=== PATIENT | male | born 1950 | race Caucasian/White ===

== ENCOUNTER 2019-03-16 05:49 | Inpatient (IN) | payer OTHER ==
[~2019-03-16] VITALS: Ht 182.9 cm; Wt 92.6 kg
[2019-03-16] VITALS (26 sets, daily range): BP systolic 100–134; BP diastolic 58–91
[~2019-03-16 05:49] MED LIST: ACETAMINOPHEN325 M1 PO; ADULT LOW DOSE81 MG PO; ADVAIR 250-501 EACH INH; ADVAIR HFA 230M12 GM INH; ADVAIR HFA115 MCG/21 INH; ALBUTEROL NEB INH; ALBUTEROL2.5 MG/0.5 INH; ALPRAZOLAM 0.0.25 M1 PO; AMLODIPINE BESY10 MG PO; ANUSOL-HC25 MG RECTAL; APAP/CODEINE ELI5 M1 OR; ASPIR 8181 MG PO; ASPIRIN EC81 M1 PO; ASPIRIN325 PO; AUGMENTIN 875875 M1 PO; AZITHROMYCIN 2250 MG PO; BENICAR20 MG PO; BLOOD PRESSURE MED; CARDIZEM CD180 MG PO; CEFUROXIME500 MG PO; CELEXA 20 MG TA20 M1 PO; CHANTIX1 MG PO; CLEAR LAX; CODEINE 10 MG-473 ML; COZAAR 25 MG TA25 M1 PO; COZAAR 50 MG TA50 M1 PO; DOXYCYCLINE 10100 MG PO; DUONEB 2.5-0.5 M3 ML INH; GUAIFENESI100 MG/5 M PO; HYDROCODON-ACE1 EAC7 PO; HYDROCODONE-AP1 EAC6 PO; INHALER; LEVAQUIN 500 M500 M2 PO; LEVAQUIN 500 M500 M4 PO; MIRALAX255 GM PO; MOM PO; MUCINEX TA600 MG/TA1 PO; MUCINEX TA600 MG/TA2 PO; MYLANTA 12 OZ355 M1 PO; NOHOMEMEDICATIONS; NORCO 5-325 TA1 EACH PO; OMEPRAZOLE PO; PANTOPRAZOLE SO40 M1 PO; PREDNISONE 10 M10 MG PO; PREDNISONE 20 M20 M1 PO; PREDNISONE 20 M20 MG PO; PREDNISONE50 MG PO; PRILOSEC 20 MG20 MG PO; PRILOSEC PO; PROAIR HFA8.5 GM IH; PROAIR HFA8.5 GM INH; PROAIR HFA8.5 GM PO; PROPAFENONE 15150 MG PO; PROTONIX 20 MG20 M1 PO; PROTONIX40 M1 PO; PROVENTIL HFA6.7 G1 INH; RYTHMOL 150MG150 M1 PO; SINGULAIR 10 MG10 M1 PO; SPIRIVA18 MCG INH; TESSALON PERLE100 MG PO; TRAZODONE HCL50 MG PO; TUSSIONEX PENN473 ML PO; VENTOLIN HFA 1818 GM INH; XANAX 0.5 MG0.5 MG PO; ZPAK; ZPAK PO; [UNRECOGNIZED DRUG - OTHER]; [UNRECOGNIZED DRUG - REMARK]
[2019-03-16] MEDS ORDERED: TRELEGY ELLIPT1 EACH INH (06:00)
[2019-03-16] MEDS ORDERED: PROAIR RESPICL90 MCG INH (06:00)
[2019-03-16] MEDS ORDERED: XANAX 0.25 MG0.25 MG PO (06:00)
[2019-03-16] MEDS ORDERED: SINEMET 25-1001 EAC1 PO (06:01)
[2019-03-16 06:03] LABS: ABSOLUTE BASOPHILS 0.1 thou/uL (0.0-0.2); ABSOLUTE EOSINOPHILS 0.1 thou/uL (0.0-0.7); ABSOLUTE MONOCYTES 0.9 thou/uL (0.0-1.2); ABSOLUTE NEUTROPHILS 6.6 thou/uL (1.6-8.1); BASOPHILS 0.8 %; EOSINOPHILS 0.6 %; HEMATOCRIT 42.3 % (42.0-52.0); HEMOGLOBIN 14.4 gm/dL (14.0-18.0); LYMPHOCYTES 20.5 %; MCH 30.7 pg (26.0-34.0); MCHC 34.1 g/dL (28.0-37.0); MCV 90.2 fL (80.0-100.0); MONOCYTES 9.3 %; MPV 7.4 fl. (7.2-11.1); NUCLEATED RBCS 0 /100WBC; PLATELET COUNT* 322 thou/uL (150-400); POLYS 68.8 %; RBC 4.69 mil/uL (4.50-6.00); RDW-CV 14.4 % (10.5-14.5); WBC 9.6 thou/uL (4.0-11.0)
[2019-03-16 06:13] LABS: ANION GAP 14 mmol/L (7-16); BUN 13 mg/dL (7-18); CALCIUM 9.2 mg/dL (8.5-10.1); CHLORIDE 105 mmol/L (98-107); CO2 23 mmol/L (21-32); CREATININE 1.2 mg/dL (0.6-1.3); GLUCOSE 106 mg/dL (70-99); POTASSIUM 3.8 mmol/L (3.5-5.1); SODIUM 142 mmol/L (136-145)
[2019-03-16 06:15] LABS: INR 1.1; PROTIME 10.8 Seconds (9.20-11.50)
[2019-03-16 06:24] LABS: ALBUMIN 3.5 g/dL (3.4-5.0); ALKALINE PHOSPHATASE 109 U/L (46-116); MAGNESIUM 2.1 mg/dL (1.8-2.4); NT-PRO BRAIN NAT PEPTIDE 116 pg/mL (<300); SGOT 21 U/L (15-37); SGPT 31 U/L (30-65); TOTAL BILIRUBIN 0.5 mg/dL (<0.1-1.0); TOTAL PROTEIN 7.6 g/dL (6.4-8.2); TROPONIN-I LEVEL <0.06 ng/mL (<0.06)
--- NOTE | 2019-03-16 06:57 | NUR ---
THIS NURSE RECEIVED REPORT FROM SHUN REA. THIS NURSE TO ASSUME PT CARE AT THIS TIME.
[2019-03-16 07:16] LABS: BE -5.2 mmol/L (-2 to +3); PCO2 30.6 mmHg (35.0-45.0); PO2 116.7 mmHg (75.0-100.0); pH 7.396 (7.340-7.450)
--- NOTE | 2019-03-16 07:38 | NUR ---
REPORT GIVEN TO SHUN BALDWIN IN ICU. SHUN BALDWIN TO ASSUME PT CARE INPATIENT NURSE.
--- NOTE | 2019-03-16 09:33 | NUR ---
PT ORIENTED TO ROOM AND UNIT. BED LOW AND LOCKED, SIDE RAILS UP X4, CALL LIGHT IN REACH. PT REMIAN ON BIPAP. WILL CONTINUE TO ASSESS.
--- NOTE | 2019-03-16 10:31 | EKG ---
[place] [address] ELECTROCARDIOGRAM REPORT Name: CHERELLE CROWLEY Room: [address] ADM IN M.R.#: [id number] Admission: 03/16/19 Attend Phys: Onesimo Engle MD Discharge: Date of : 52 Report #: [id number] THIS REPORT FOR: //name// [facility] ED Test Date: 2019-03-16 Test Time: 05:52:44 Pat Name: CHERELLE CROWLEY Department: Room: [facility] Gender: M Gambrel[place]: [place] : 1950 Requested By: Crystal Jacobo Order Number: [id number] MD: Manoj Hernandez Measurements Intervals [place] Rate: 94 P: -8 GA: 149 QRS: -26 QRSD: 108 T: 48 QT: 347 QTc: 434 Interpretive Statements Sinus rhythm Borderline left axis deviation Borderline low voltage, extremity leads Baseline wander in lead(s) V3 Compared to ECG 12/05/2016 09:11:21 no change Electronically Signed On 03-16-2019 10:31:45 CDT by Manoj Hernandez [email or web address] <ELECTRONICALLY SIGNED> By: Manoj Hernandez MD, FACC 03/16/19 1031 0552 0552 Manoj Hernandez MD, [facility] /EPI
--- NOTE | 2019-03-16 10:44 | NUR ---
Nutrition: Consult received for poor po intake. Pt has lost wt from 217# to 183# over 2 yrs - mild to moderate loss. H/o Parkinsons, GERD, COPD/steroid-dependent. Albumin 3.5, labs good. Uses bipap so suboptimal po intake. Spoke with RN, I ordered Ensure Ensure MAX for added kcals and protien. At this time, consider pt mild risk. Will follow po intake, wt, labs. Follow up 03/20/19.
--- NOTE | 2019-03-16 15:26 | NUR ---
PT OFF UNIT TO CT
--- NOTE | 2019-03-16 17:10 | NUR ---
SW met with pt to complete initial assessment, introduce self, and SW role. Pt lives at home with . Pt was having difficulty talking without subsequently having excessive coughing. SW/CM to continue to follow to assist with safe dc planning.
--- NOTE | 2019-03-16 17:26 | NUR ---
WAS ABLE TO WEAN PT OFF BIPAP AND IS NOW ON 3L NC. PT TOLERATING CLEAR LIWUID DIET. WILL CONTINUE TO ASSESS.
[2019-03-17] VITALS (23 sets, daily range): BP systolic 82–130; BP diastolic 46–82
[2019-03-17 00:54] LABS: HEMATOCRIT 36.3 % (42.0-52.0); MCH 30.3 pg (26.0-34.0); MCHC 33.6 g/dL (28.0-37.0); MCV 90.2 fL (80.0-100.0); MPV 7.5 fl. (7.2-11.1); RBC 4.02 mil/uL (4.50-6.00); RDW-CV 14.5 % (10.5-14.5); WBC 5.9 thou/uL (4.0-11.0)
[2019-03-17 00:56] LABS: HEMOGLOBIN 12.2 gm/dL (14.0-18.0)
[2019-03-17 01:01] LABS: CALCIUM 8.2 mg/dL (8.5-10.1); CREATININE 0.9 mg/dL (0.6-1.3); MAGNESIUM 2.1 mg/dL (1.8-2.4); POTASSIUM 3.8 mmol/L (3.5-5.1)
--- NOTE | 2019-03-17 06:11 | NUR ---
ASSUMED PATIENT CARE AT 1900. PATIENT ALERT AND ORIENTED TIMES FOUR. PERSISTENT COUGH. ENOUGH TO MAKE CHEST AND BACK HURT. TITRATED TO 2L NC. TRIED TO TITRATE OFF. PATIENT DESAT TO 88-90%. O2 RESUMED AT 2L. MINOR COMPLAINTS OF PAIN, MOSTLY FROM COUGHING. IV PATENT. CYTOGENETICS TECHNOLOGIST COMPLETED DOCUMENTED.
--- NOTE | 2019-03-17 08:08 | CON ---
[address] [address] CONSULTATION Name: CHERELLE CROWLEY Room: [address] ADM IN M.R.#: [id number] Admission: 03/16/19 Attend Phys: Onesimo Engle MD Discharge: Date of : 52 Report #: [id number] THIS REPORT FOR: //name// CC: Onesimo Marrero DATE OF SERVICE: 03/16/2019 NEW PATIENT EVALUATION REASON FOR EVALUATION: Acute respiratory failure, chronic obstructive pulmonary disease exacerbation. REFERRING PHYSICIAN: Onesimo Engle MD HISTORY OF PRESENT ILLNESS: The patient is a 68-year-old gentleman who came in today with severe shortness of breath. When he arrived to the ICU the patient was very short of breath, unable to speak full sentences. He was in severe distress and immediately was placed on BiPAP with improvement. He has been tachypneic in the 30s, has been complaining of cough over the last 2-3 days. However, his cough is dry. He has minimal wheezing, describes chest soreness, but describes retrosternal chest pain as well. He has been on inhalers with Trelegy. He follows at [facility] with Dr. Ch' group. His last admission per the patient has been several years ago. He said he has been on inhalers, quit smoking 15 years ago; however had also asbestos exposure. Since admission, he had lower extremity Dopplers that were negative. Chest x-ray did not show consolidation. Otherwise, history is limited because of the patient being on BiPAP with difficulty with history. History was obtained as above from staff, RT, RN and the patient himself and previous records. No previous admission to the system. PAST MEDICAL HISTORY: Includes COPD, previous history of pneumonia, history of right ankle fracture. ALLERGIES: None. PAST SURGICAL HISTORY: Ankle fracture. SOCIAL HISTORY: Quit smoking 15 years ago, smoked for 45 years, 2 packs per day for a total of 44-wsri-ihfw smoking. 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 FAMILY HISTORY: No family history of lung disease. PHYSICAL EXAMINATION: [place] [address] CONSULTATION Name: CHERELLE CROWLEY Room: [address] IN [facility]#: [id number] Admission: 03/16/19 Attend Phys: Onesimo Engle MD Discharge: Date of : 52 Report #: [id number] GENERAL: The patient is pleasant, not in distress. He is on BiPAP, not in distress. BiPAP 13/02. VITAL SIGNS: He is afebrile, pulse is 80, respiratory rate is 22, blood pressure 109/73, O2 saturation is adequate at 94%. HEAD AND NECK: Normocephalic. Oral mucosa clear. Eyes nonicteric. Neck is supple. No JVD. CHEST: No wheezing. Good air movement in both lungs. Hyperinflation. No significant tenderness. ABDOMEN: Mildly tender. Not reproducible. EXTREMITIES: No edema. PSYCHIATRIC: Flat affect. NEUROLOGIC: No focal deficits grossly. SKIN: No changes. LABORATORY AND OTHER DATABASE: White blood cell count 9.7, hemoglobin is 14.4, platelets 322. Blood gas: pH 7.39, pCO2 of 30, pO2 116. He is sedated on 40% 16/8. Chemistry: Creatinine was 1.1. His lactic acid was normal at 1.1. Troponin x 3 negative. ProBNP 116. D-dimer was elevated at 1.3. ASSESSMENT AND PLAN: 1. Acute respiratory failure. The patient is known to have COPD, likely severe; however, no recent hospitalization. He is on home inhaler with Trelegy, has worsening cough, shortness of breath. At this time recommend treatment with IV systemic steroids as well as antibiotics. We will add Levaquin with the severity of his exacerbation. Agree with bronchodilator treatment every 4 hours. His arterial blood gas has been acceptable. Currently the patient is on azithromycin and Rocephin. We will switch to Levaquin. Continue methylprednisolone every 8 hours today. We will reevaluate tomorrow. 2. Chest pain, atypical. Troponins were negative. Natriuretic peptide is negative; however, elevated D-dimer. Differential diagnosis includes musculoskeletal injury with severe cough. Cardiac is less likely with normal troponin; however, need to evaluate for pulmonary embolism. We will obtain CT angiogram. His lower extremity Dopplers was negative; however, has elevated D-dimer. 3. Previous history of asbestos exposure, it is remote. However with the previous history of smoking, also CT will be obtained to evaluate also for interstitial lung disease as well. 4. Continue BiPAP today. We will reevaluate for weaning tomorrow. We will obtain arterial blood gas tomorrow off BiPAP to evaluate tolerance. At this time, we will continue treatment. This was discussed with nursing and RT as well. <ELECTRONICALLY SIGNED> By: Tito Hernandez MD 03/17/19 0808 1512 0052Apolly Jean Baptiste MD /nt
[2019-03-17 11:58] LABS: URINE BILIRUBIN NEGATIVE (Negative); URINE BLOOD NEGATIVE (Negative); URINE CLARITY CLEAR; URINE COLOR YELLOW; URINE GLUCOSE-RANDOM NEGATIVE (Negative); URINE KETONES NEGATIVE (Negative); URINE LEUKOCYTES-REFLEX NEGATIVE (Negative); URINE NITRITE-REFLEX NEGATIVE (Negative); URINE PROTEIN NEGATIVE (Negative); URINE SPECIFIC GRAVITY <= 1.005 (1.005-1.030); URINE UROBILINOGEN 0.2 E.U./dl (0.2-1.0)
--- NOTE | 2019-03-17 15:40 | NUR ---
ICU rounds: Pt off of bipap and on 2 L oxygen. Pt continues to have coughing episodes. No pt or family concerns presented at this time. SW/KIN to continue to follow.
[2019-03-18] VITALS (8 sets, daily range): BP systolic 93–142; BP diastolic 54–122
--- NOTE | 2019-03-18 02:53 | NUR ---
REPORT GIVEN TO PATTERNMAKER SAMPLE. PT. TRANSFERRING VIA BED. 2L O2. QUESTIONS DENIED. PT. TRANSFERRED TO TELEMETRY AT THIS TIME.
--- NOTE | 2019-03-18 07:12 | NUR ---
RECEIVED REPORT FROM MAGI RN AT 0225. PT ARRIVED TO UNIT AT 0245 VIA BED. PT VOICED NO CONCERNS, ON CUT OFF [place] TRACING SR. HOURLY ROUNDING COMPLETED. NPO FOR ST EVAL. CALL LIGHT WITHIN REACH.
--- NOTE | 2019-03-18 13:59 | NUR ---
VIDEO SWALLOW STUDY COMPLETED. PT SAFE FOR MECHANICAL SOFT-GROUND/THIN DIET. NO ASPIRATION OCCURRED, ONLY TRACE FLASH PENETRATION C THIN. LARGER/CHUNKY BOLUSES LODGED BEHIND THE EPIGLOTTIS AND WAS DIFFICULT FOR THE PT TO CLEAR. IT WAS EVENTUALLY CLEARED WITH THIN AND PUREE SWALLOWS.
--- NOTE | 2019-03-18 14:21 | NUR ---
MET WITH PT. HE WAS TIRED AND VOICE WEAK, ASKED THAT I CALL HIS AND WANTED TO KNOW ABOUT GETTING ASSIST TO APPLY FOR MEDICAID. CALL TO /JAQUELINE. SHE STATED THAT THEY ARE STRUGGLING AT HOME. PT'S SISTER 2 WEEKS AGO AND STATES PT HAS NOT BEEN DOING WELL SINCE THAT TIME. ALSO, THEY ARE RAISING 2 GRANDCHILDREN, 6 AND 16. STATES SHE IS ALWAYS BUSY AT HOME AND ASSISTS PT WITH NEEDS PRN. SHE STATED THAT NORMALLY PT IS ABLE TO DO HIS OWN ADLS, GET IN AND OUT OF BED, TOILET HIMSELF AND USES WALKER. HE HAS A NEBULIZER ALSO. HE DOESN'T SMOKE BUT SHE DOES. DOES COOKING, CLEANING AND DRIVING. PT HAS HAD HH IN PAST BUT NOT BEEN TO SNF. 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 EXPLAINED THAT PT MAY NEED SNF AT [place] FOR REHAB AND WHAT THAT ENTAILED. ALSO DISCUSSED PALLIATIVE CARE. STATED THEY HAVE LITTLE OUTSIDE SUPPORT OR RESOURCES. SHE WANTS TO TALK OPTIONS OVER WITH PT AND DECIDE. UPDATED DR KAT, ORDERS FOR THERAPY RECEIVED. WILL FOLLOW
[2019-03-19] VITALS (8 sets, daily range): BP systolic 104–145; BP diastolic 60–86
--- NOTE | 2019-03-19 04:27 | NUR ---
ASSUMED PT CARE AT APPROX 1930. PT IS AWAKE AND ORIENTED X4. VSS ON 2L OF O2/NC. DRAIN LAYER IN PLACE TRACING SR. ASSESSMENT DONE AND CHARTED. PT DENIES PAIN AND DISCOMFORT. PT STATES HE "FEELS BETTER". PT IS ABLE TO SLEEP MOST OF THE NIGHT. CALL LIGHT WITHIN REACH. HOURLY ROUNDING DONE FPR PT SAFETY. HIGH FALL PRECAUTIONS IN PLACE.
[2019-03-19 05:00] LABS: CALCIUM 8.6 mg/dL (8.5-10.1); CREATININE 0.8 mg/dL (0.6-1.3); MAGNESIUM 2.4 mg/dL (1.8-2.4)
--- NOTE | 2019-03-19 14:36 | NUR ---
CONTINUE TO FOLLOW, VERNA FROM [facility] HERE, COMPLETED MEDICAID LIZET AND WILL SUBMIT. DISCUSSED PALLIATIVE CARE AND HH AT DC WITH PT AND AGAIN WELL SNF. PT DECLINES SNF, WANTS TO GO HOME. OFFERED PALLIATIVE CARE OPTIONS, CHOSE [facility]. THEY CAME OUT AND PT DID SIGN UP WITH THEM. DISCUSSED HH OPTIONS, PT HAS NO PREFERENCE, NEEDS THERAPY AND RT. CALLED AND FAXED REFERRAL TO [facility], THEY CAN ACCEPT AT DC, WILL NEED ORDERS CALLED AND FAXED TO THEM. PT MAY NEED O2 AT DC ALSO. CM TO FOLLOW AND ASSIST WITH DC PLAN [facility] [phone] FAX [phone] [facility] [phone] FAX [phone]
--- NOTE | 2019-03-19 18:42 | NUR ---
PT VSS, NSR ON TELE, PT COUGHS AND DESATS WHILE COUGHING, COUGH LOOSE BUT NONPRODUCTIVE. NC@2L O2, PT UP WITH TWO. HIGH FALL RISK.PT ON [facility] SOFT DIET LIMIT MEAT AND BREAD CAUSES SWALLOWING ISSUES AND CHOKING ISSUE FOR PT. PERSONAL POSSESSIONS AND CALL LIGHT WITHIN REACH. HOURLY ROUNDING PERFORMED.
--- NOTE | 2019-03-19 19:06 | NUR ---
THIS RN AGREES WITH ASSESSMENT AND CHARTING OF KATIE HOFFMANN.
--- NOTE | 2019-03-20 06:03 | NUR ---
Patient arrived to the floor around 2100. He is alert and oriented x 4. His lungs are coarse and wheezy. He is on O2 at 2L n/c and getting breathing treatments. He is coughing and has cough syrup ordered. His vitals are stable. He denies pain. He has slept well.
--- NOTE | 2019-03-20 11:30 | NUR ---
Nutrition: follow up note. Pt coughing when eating - on [facility] Soft diet. Wt back up to 204#. Will follow wt trends. Aspiration precautions. Pt now signed with Palliative Care. Alb 3.5. Defer nutrition if on palliative. RD available via consult.
--- NOTE | 2019-03-20 15:56 | EKG ---
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
--- NOTE | 2019-03-20 18:22 | NUR ---
ASSUMED CARE OF PATIENT AT APPROX 0730. ALERT AND ORIENTED X4. ASSESSMENT COMPLETED AND CHARTED. VSS ON 2 LITERS 02. COMPLAINT OF CHEST PAIN THIS MORNING, NOTIFIED DR KAT, ORDERS GIVEN FOR TROPONIN SERIES, EKG, ASPIRIN AND NITRO. LABS AND EKG UNREMARKABLE. PATIENT STATES PAIN IS UNDER CONTROL AND HE DOES NOT NEED ANY NEW PAIN MEDICATIONS ORDERED. FALL PRECAUTIONS IN PLACE. CALL LIGHT IN REACH. HOURLY ROUNDS COMPLETED. WILL CONTINUE TO MONITOR.
[2019-03-20 20:00] VITALS: BP 134/86
--- NOTE | 2019-03-21 05:27 | NUR ---
ASSUMED PT CARE AT 1930. PT ALERT AND ORIENTED X4, POLITE AND COOPERATIVE WITH CARES. VSS ON 2L 02 PER NC. DENIES PAIN. LOOSE COUGH. PT SLEPT WELL OVERNIGHT. SALINE LOCK TO LEFT HAND FLUSHES EASILY. FALL PRECAUTIONS IN PLACE. HOURLY ROUNDING IN PROGRESS, WILL CONTINUE TO MONITOR.
[2019-03-21 08:00] VITALS: BP 145/86
[2019-03-21 16:33] VITALS: BP 125/80
--- NOTE | 2019-03-21 16:58 | NUR ---
PT REMAINED ALERT AND ORIENTED. PT UP TO CHAIR FOR MEALS. PT REFUSED SHOWER TODAY. OXYGEN IN PLACE. FALL RISK PRECAUTIONS IN PLACE. HOURLY ROUNDING COMPLETED. WILL CONTINUE TO MONITOR.
[2019-03-21 20:00] VITALS: BP 134/83
--- NOTE | 2019-03-22 06:07 | NUR ---
Alert and oriented x 4. His lungs are clear and diminished in the lower lobes. I did not hear wheezes when he was assessed. He is coughing occasionally but not as much as before. He did well with his medications. He is voiding adequately. He denies pain or nausea. He has slept well.
[2019-03-22 08:45] VITALS: BP 119/83
[2019-03-22 15:43] VITALS: BP 118/75
--- NOTE | 2019-03-22 18:02 | NUR ---
PATIENT ALERT AND ORIENTED X 4. VITAL SIGNS STABLE ON 2L O2 NASAL CANULA. AFEBRILE. IV PATENT AND SALINE LOCKED. DENIES PAIN AND NAUSEA AT THIS TIME. VOIDING PER URINAL. UP TO CHAIR FOR LUNCH AND DINNER. FALL PRECAUTIONS IN PLACE AND BED ALARM ON. HOURLY ROUNDS MAINTAINED THROUGHOUT THE SHIFT. CALL LIGHT WITHIN REACH. NURSING WILL CONTINUE TO MONITOR.
[2019-03-22 20:00] VITALS: BP 114/68
--- NOTE | 2019-03-23 06:00 | NUR ---
Alert and oriented x 4. His vitals were stable. Lungs were diminished and had some fine crackles in lower lobes. He was on 2L n/c. RT did a sleep study with pulse ox. He has slept with roomair and the monitor only alarmed one time and it was only for about 5 seconds. This am he is still on roomair and is 93%. He has slept well.
[2019-03-23] MEDS ORDERED: BENZONATATE100 MG PO (08:44)
[2019-03-23] MEDS ORDERED: AUGMENTIN 875-1 EACH PO (08:44)
[2019-03-23] MEDS ORDERED: SINGULAIR 10 MG10 M1 PO (08:44)
[2019-03-23] MEDS ORDERED: PREDNISONE 10 M10 MG PO (08:44)
[2019-03-23] MEDS ORDERED: ROBITUSSIN AC Liquid PO (08:44)
[2019-03-23] MEDS ORDERED: ALBUTEROL SULFAT2 MG PO (08:44)
[2019-03-23 08:50] VITALS: BP 122/76
--- NOTE | 2019-03-23 12:00 | NUR ---
PT.TO DISCHARGE TODAY WITH HOME HEALTH AND PALLIATIVE CARE. FAXED DISCHARGE SUMMARY AND ORDERS TO [facility] AND SPOKE WITH DAISY. FAXED DISHCARGE SUMMARY AND ORDERS TO [facility]. THEY BOTH WILL CALL PT.TO SET UP APPTS. PT.DID NOT QUALIFY FOR HOME O2 OR NOCTURNAL O2.
[2019-03-23 13:47] VITALS: BP 130/80
--- NOTE | 2019-03-23 16:24 | NUR ---
PATIENT DISCHARGED FROM UNIT AT 1615. ALERT AND ORIENTED X 4. VITAL SIGNS STABLE ON ROOM AIR. AFEBRILE. DENIES PAIN AND NAUSEA AT THIS TIME. DISCHARGE INSTRUCTIONS, MEDICATION INFORMATION, AND SCRIPTS GIVEN TO PATIENT. LEFT WITH ALL BELONGINGS. PATIENT LEFT WITH VIA CAR.
[2019-03-23 16:27] VITALS: BP 130/80
== END 2019-03-23 16:15 | disposition home health service (06) | DRG 177 ==
LOC: M.ERS 05:49 → M.TBA-ER 06:22 → M.ICU 06:22 → M.2W 06:22 → M.ICU 08:08 → M.2W 03-18 02:56 → M.ORTHSURG 03-19 20:24
PROVIDERS: Personal Emergency Response Attendant; ADMIT Internal Medicine
PROC: 5A09357 Assistance with Respiratory Ventilation, Less than 24 Consecutive Hours, Continuous Positive Airway Pressure (ICD-10-PCS; principal; 2019-03-16)
DX: J69.0 Pneumonitis due to inhalation of food and vomit (principal); J96.01 Acute respiratory failure with hypoxia; R07.89 Other chest pain; G20 Parkinson's disease; F41.1 Generalized anxiety disorder; R13.10 Dysphagia, unspecified; J43.9 Emphysema, unspecified; J20.9 Acute bronchitis, unspecified; I10 Essential (primary) hypertension; K21.9 Gastro-esophageal reflux disease without esophagitis; Z79.899 Other long term (current) drug therapy; Z79.82 Long term (current) use of aspirin; Z79.51 Long term (current) use of inhaled steroids; Z87.891 Personal history of nicotine dependence; Z87.01 Personal history of pneumonia (recurrent)

== ENCOUNTER 2019-05-29 06:37 | Inpatient (IN) | payer OTHER ==
[~2019-05-29] VITALS: Ht 177.8 cm; Wt 84.5 kg
[~2019-05-29 06:37] MED LIST changes: +ALBUTEROL SULFAT2 MG PO; +AUGMENTIN 875-1 EACH PO; +BENZONATATE100 MG PO; +PROAIR RESPICL90 MCG INH; +ROBITUSSIN AC Liquid PO; +SINEMET 25-1001 EAC1 PO; +TRELEGY ELLIPT1 EACH INH; +XANAX 0.25 MG0.25 MG PO
[2019-05-29 07:08] LABS: BE -0.4 mmol/L (-2 to +3); PCO2 36.3 mmHg (35.0-45.0); PO2 74.9 mmHg (75.0-100.0); pH 7.429 (7.340-7.450)
[2019-05-29 07:20] LABS: ABSOLUTE BASOPHILS 0.1 thou/uL (0.0-0.2); ABSOLUTE EOSINOPHILS 0.1 thou/uL (0.0-0.7); ABSOLUTE LYMPHOCYTES 1.5 thou/uL (0.8-5.3); ABSOLUTE MONOCYTES 0.6 thou/uL (0.0-1.2); ABSOLUTE NEUTROPHILS 6.3 thou/uL (1.6-8.1); BASOPHILS 0.9 %; EOSINOPHILS 1.3 %; HEMATOCRIT 42.1 % (42.0-52.0); HEMOGLOBIN 14.3 gm/dL (14.0-18.0); LYMPHOCYTES 17.6 %; MCH 30.8 pg (26.0-34.0); MCHC 33.9 g/dL (28.0-37.0); MCV 90.9 fL (80.0-100.0); MONOCYTES 7.2 %; MPV 7.5 fl. (7.2-11.1); NUCLEATED RBCS 0 /100WBC; PLATELET COUNT* 273 thou/uL (150-400); RBC 4.63 mil/uL (4.50-6.00); RDW-CV 14.4 % (10.5-14.5); WBC 8.6 thou/uL (4.0-11.0)
[2019-05-29 07:35] LABS: PROTIME 10.7 Seconds (9.20-11.50)
[2019-05-29 07:46] LABS: POTASSIUM 4.3 mmol/L (3.5-5.1)
[2019-05-29 07:57] LABS: ALBUMIN 3.9 g/dL (3.4-5.0); TOTAL BILIRUBIN 0.3 mg/dL (<0.1-1.0); TOTAL PROTEIN 6.9 g/dL (6.4-8.2)
[2019-05-29 08:08] LABS: INFLUENZA A ANTIGEN Negative (Negative); INFLUENZA B ANTIGEN Negative (Negative)
[2019-05-29 09:10] VITALS: BP 146/90
--- NOTE | 2019-05-29 09:50 | NUR ---
PT ARRIVED TO UNIT AT APPROX 0940 VIA CART, REPORT TAKEN FROM SHUN BARRETT. PT A&O X4, UP WITH ASSIST, LS COARSE/DIMINISHED THROUGHOUT, O2 3LPM VIA NC, DYSPNEIC WITH EXERTION, MED SURG STATUS. PT EDUCATED CALLING FOR HELP, ORIENTED TO CALL LIGHT AND ROOM.
--- NOTE | 2019-05-29 10:18 | EKG ---
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 05/29/19 1018 0645 0645 Manoj Hernandez MD, [facility] /EPI
[2019-05-29 16:09] VITALS: BP 117/72
[2019-05-29 20:00] VITALS: BP 123/82
[2019-05-30] VITALS: BP 105/65
[2019-05-30 04:42] LABS: HEMATOCRIT 38.6 % (42.0-52.0); MCH 30.6 pg (26.0-34.0); MCHC 33.6 g/dL (28.0-37.0); MPV 7.5 fl. (7.2-11.1); RBC 4.24 mil/uL (4.50-6.00); RDW-CV 14.4 % (10.5-14.5); WBC 7.2 thou/uL (4.0-11.0)
[2019-05-30 04:46] LABS: CALCIUM 8.6 mg/dL (8.5-10.1); CREATININE 0.8 mg/dL (0.6-1.3)
--- NOTE | 2019-05-30 06:18 | NUR ---
ASSUMED CARE OF PT AFTER REPORT AT 1930. PT A&OX4. VSS. PHYSICAL ASSESSMENT COMPLETED AND CHARTED. PT ON O2 AT 3L NC. PT ON MEDSURG STATUS. PT UPSTANDBY. PT COMPLAINED OF NECK, RIGHT SHOULDER & CHEST PAIN- MEDS GIVEN PER AUG. PT REQUESTED FOR SLEEPING PILL-DR GUTIERREZ MADE AWARE WITH NEW ORDER. CALL LIGHT WITHIN REACH.
--- NOTE | 2019-05-30 07:15 | NUR ---
CHANGE OF SHIFT, BEDSIDE REPORT GIVEN PATIENT SEEN AT BEDSIDE, IN BED ASLEEP ASSUMED PATIENT CARE
[2019-05-30 08:00] VITALS: BP 125/81
[2019-05-30 17:23] VITALS: BP 127/79
[2019-05-30 20:00] VITALS: BP 120/75
[2019-05-31 04:00] VITALS: BP 104/60
--- NOTE | 2019-05-31 05:00 | NUR ---
ASSUMED CARE OF PT AFTER REPORT AT 1930. PT A&OX4. VSS. PHYSICAL ASSESSMENT COMPLETED AND CHARTED. PT ON O2 AT 2L NC. PT ON MEDSURG STATUS. PT COMPLAINED OF NECK & RIGHT SHOULDER-MEDS GIVEN PER MAR. MAINTAINED ON DROPLET PRECAUTION FOR POSSIBLE PERTUSSIS. PT ABLE TO SLEEP WELL ON BED. CALL LIGHT WITHIN REACH.
--- NOTE | 2019-05-31 07:15 | NUR ---
CHANGE OF SHIFT, BEDSIDE REPORT GIVEN PATIENT SEEN AT BEDSIDE, IN BED ASLEEP ASSUMED PATIENT CARE
[2019-05-31 08:00] VITALS: BP 114/61
[2019-05-31 16:00] VITALS: BP 120/69
[2019-05-31 20:00] VITALS: BP 115/73
[2019-06-01 04:00] VITALS: BP 118/81
--- NOTE | 2019-06-01 06:31 | NUR ---
ASSUMED CARE OF PT AFTER REPORT AT 1930. PT A&OX4. VSS. PHYSICAL ASSESSMENT COMPLETED AND CHARTED. PT ON O2 AT 2L NC. PT ON MEDSURG STATUS. PT COMPLAINED OF NECK & RIGHT SHOULDER PAIN-MEDS GIVEN PER MAR. PT ABLE TO SLEEP WELL ON BED. CALL LIGHT WITHIN REACH.
[2019-06-01 08:10] VITALS: BP 125/82
--- NOTE | 2019-06-01 12:58 | NUR ---
Pt is A&O. Resides at home with his and extended family. Pt is current with [facility] palliative care, per MAKAYLA Morris, Pt's house is dirty. Discussed options, PCSW to continue to work with Pt and family to assist with trying to make sure that Pt remains safe in his current living environment. Hx of [facility]. No hx of SNF. Goal is home at dc, resume PC. Following.
[2019-06-01 17:45] VITALS: BP 142/91
--- NOTE | 2019-06-01 19:50 | NUR ---
PATIENT AMBULATING THROUGHOUT SHIFT WITH STAND BY ASSISTANCE, WALKER, AND GAIT BELT IN ROOM AND TO BATHROOM. ALL SAFETY MEASURES MAINTAINED. PATIENT DENIES FURTHER NEEDS AT THIS TIME.
[2019-06-01 21:00] VITALS: BP 122/78
--- NOTE | 2019-06-02 05:41 | NUR ---
PATIENT SLEPT MOST OF THE NIGHT. IV REMAINS SALINE LOCKED. PATIENT HAD NO COMPLAINTS OF PAIN. PATIENT REMAINS ON OXYGEN AT 2L PER NASAL CANNULA. PATIENT REMAINS ON DROPLET PRECAUTIONS FOR POSSIBLE PERTUSSIS. WILL CONTINUE TO MONITOR.
[2019-06-02 05:58] LABS: HEMOGLOBIN 13.7 gm/dL (14.0-18.0); MCH 30.5 pg (26.0-34.0); MCHC 33.5 g/dL (28.0-37.0); MCV 90.9 fL (80.0-100.0); MPV 7.1 fl. (7.2-11.1); RBC 4.5 mil/uL (4.50-6.00); RDW-CV 14.3 % (10.5-14.5); WBC 9.4 thou/uL (4.0-11.0)
[2019-06-02 06:17] LABS: CALCIUM 9.1 mg/dL (8.5-10.1); CREATININE 1.1 mg/dL (0.6-1.3); POTASSIUM 4.2 mmol/L (3.5-5.1)
[2019-06-02 08:30] VITALS: BP 121/76
[2019-06-02 17:10] VITALS: BP 114/73
--- NOTE | 2019-06-02 19:49 | NUR ---
PATIENT AWAKE IN BED. PATIENT UP IN CHAIR FOR LUNCH. ALL SAFETY MEASURES MAINTAINED. PATIENT DENIES FURTHER NEEDS AT THIS TIME.
[2019-06-02 20:30] VITALS: BP 113/75
--- NOTE | 2019-06-03 06:12 | NUR ---
PATIENT SLEPT MOST OF THE NIGHT. IV REMAINS SALINE LOCKED. PATIENT HAD NO COMPLAINTS OF PAIN. PATIENT REMAINS ON DROPLET PRECAUTIONS FOR POSSIBLE PERTUSSIS. WILL CONTINUE TO MONITOR.
[2019-06-03 08:56] VITALS: BP 136/87
[2019-06-03] MEDS ORDERED: PREDNISONE 20 M20 MG PO (11:46)
[2019-06-03 12:57] VITALS: BP 136/87
--- NOTE | 2019-06-03 13:46 | NUR ---
Pt to dc home with family and Palliative care services to resume. [place] faxed med records/dc summary to [facility]--pt current with agency. No need for home oxygen. No other dc needs expressed.
--- NOTE | 2019-06-03 14:40 | NUR ---
Patient ate breakfast and lunch in chair. Patient ambulating with stand by assistance, walker, and gait belt. All safety measures maintained. Clarified xanax order with Dr. Singleton. Instructed to discontinue. Discharge paperwork and prescription given to patient. IV removed. Patient and deny questions/ further needs at this time.
[2019-06-03 14:46] VITALS: BP 136/87
== END 2019-06-03 14:20 | disposition hospice, home (50) | DRG 189 ==
LOC: M.ERS 06:37 → M.TBA-ER 08:12 → M.3W 08:12 → M.2W 08:12 → M.TBA-ER 08:40 → M.2W 09:37 → M.3W 06-01 15:45
PROVIDERS: Emergency Medicine; ADMIT Family Medicine
DX: J96.21 Acute and chronic respiratory failure with hypoxia (principal); J44.1 Chronic obstructive pulmonary disease with (acute) exacerbation; A37.90 Whooping cough, unspecified species without pneumonia; Z51.5 Encounter for palliative care; J98.01 Acute bronchospasm; J06.9 Acute upper respiratory infection, unspecified; I10 Essential (primary) hypertension; K21.9 Gastro-esophageal reflux disease without esophagitis; G20 Parkinson's disease; G44.221 Chronic tension-type headache, intractable; R13.10 Dysphagia, unspecified; D32.0 Benign neoplasm of cerebral meninges; F41.1 Generalized anxiety disorder; Z79.899 Other long term (current) drug therapy; Z98.1 Arthrodesis status; Z87.891 Personal history of nicotine dependence; Z87.01 Personal history of pneumonia (recurrent); Z28.21 Immunization not carried out because of patient refusal

== ENCOUNTER 2019-09-18 13:51 | Emergency (ER) | payer MEDICARE ==
[~2019-09-18] VITALS: Ht 182.9 cm; Wt 74.8 kg
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
[2019-09-18] MEDS ORDERED: ANXIETY (13:59)
[2019-09-18 14:37] LABS: BE 0.6 mmol/L (-2 to +3); PCO2 37.2 mmHg (35.0-45.0); PO2 69.2 mmHg (75.0-100.0); pH 7.437 (7.340-7.450)
[2019-09-18 14:54] LABS: ABSOLUTE BASOPHILS 0.1 thou/uL (0.0-0.2); ABSOLUTE LYMPHOCYTES 0.8 thou/uL (0.8-5.3); ABSOLUTE MONOCYTES 0.5 thou/uL (0.0-1.2); ABSOLUTE NEUTROPHILS 7.6 thou/uL (1.6-8.1); BASOPHILS 0.6 %; EOSINOPHILS 0.3 %; HEMATOCRIT 40.7 % (42.0-52.0); HEMOGLOBIN 13.9 gm/dL (14.0-18.0); LYMPHOCYTES 9.3 %; MCH 31.2 pg (26.0-34.0); MCHC 34.2 g/dL (28.0-37.0); MCV 91.3 fL (80.0-100.0); MONOCYTES 5.6 %; MPV 7.1 fl. (7.2-11.1); NUCLEATED RBCS 0 /100WBC; PLATELET COUNT* 277 thou/uL (150-400); POLYS 84.2 %; RBC 4.45 mil/uL (4.50-6.00); RDW-CV 14.9 % (10.5-14.5)
[2019-09-18 15:41] LABS: CALCIUM 8.7 mg/dL (8.5-10.1); CREATININE 0.8 mg/dL (0.6-1.3); POTASSIUM 3.7 mmol/L (3.5-5.1)
[2019-09-18 15:46] LABS: ALBUMIN 3.7 g/dL (3.4-5.0); TOTAL BILIRUBIN 0.5 mg/dL (<0.1-1.0); TOTAL PROTEIN 6.6 g/dL (6.4-8.2)
[2019-09-18 16:12] LABS: INFLUENZA A ANTIGEN Negative (Negative); INFLUENZA B ANTIGEN Negative (Negative)
[2019-09-18 17:38] VITALS: BP 116/85
[2019-09-18] MEDS ORDERED: IPRAT-ALBUT 0.5-3 ML INH (17:43)
[2019-09-18] MEDS ORDERED: AZITHROMYCIN 2250 MG PO (17:43)
[2019-09-18] MEDS ORDERED: MEDROLDOSEPACK PO (17:59)
[2019-09-18 18:12] VITALS: BP 124/80
--- NOTE | 2019-09-19 14:20 | EKG ---
[place] [address] ELECTROCARDIOGRAM REPORT Name: CHERELLE CROWLEY Room: 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[facility] : 1950 Requested By: Crystal Jacobo Order Number: [id number] MD: Jatin Boone Measurements Intervals [place] Rate: 88 P: 4 IA: 149 QRS: -32 QRSD: 103 T: 39 QT: 381 QTc: 461 Interpretive Statements Sinus rhythm Left axis deviation Baseline wander in lead(s) III,aVF Compared to ECG 05/29/2019 06:45:00 Left-axis deviation now present Electronically Signed On 09-19-2019 14:19:25 CDT by Jatin Boone [email or web address] <ELECTRONICALLY SIGNED> By: Summer Boone MD, [facility] 09/19/19 1419 1432 1432 Summer Boone MD, [facility] /EPI
== END 2019-09-18 18:14 | disposition home or self-care (01) ==
LOC: M.ERS 13:51
PROVIDERS: Personal Emergency Response Attendant
DX: J44.1 Chronic obstructive pulmonary disease with (acute) exacerbation (principal); I10 Essential (primary) hypertension; K21.9 Gastro-esophageal reflux disease without esophagitis; G20 Parkinson's disease; Z90.49 Acquired absence of other specified parts of digestive tract

== ENCOUNTER 2020-12-01 18:03 | Observation (INO) | payer OTHER, MEDICAID ==
[~2020-12-01] VITALS: Ht 177.8 cm; Wt 77.5 kg
[~2020-12-01 18:03] MED LIST changes: +ANXIETY; +IPRAT-ALBUT 0.5-3 ML INH; +MEDROLDOSEPACK PO
[2020-12-01 18:09] VITALS: BP 123/84
[2020-12-01] MEDS ORDERED: DULOXETINE HCL30 MG PO (18:15)
[2020-12-01] MEDS ORDERED: BACLOFEN 10MG T10 MG PO (18:16)
[2020-12-01] MEDS ORDERED: TOPAMAX100 MG PO (18:16)
[2020-12-01] MEDS ORDERED: FAMOTIDINE 40 M40 M1 PO (18:16)
[2020-12-01 18:23] LABS: ABSOLUTE BASOPHILS 0.1 thou/uL (0.0-0.2); ABSOLUTE EOSINOPHILS 0.1 thou/uL (0.0-0.7); ABSOLUTE LYMPHOCYTES 1.2 thou/uL (0.8-5.3); ABSOLUTE MONOCYTES 0.4 thou/uL (0.0-1.2); ABSOLUTE NEUTROPHILS 4.2 thou/uL (1.6-8.1); BASOPHILS 0.8 %; EOSINOPHILS 1.7 %; HEMATOCRIT 41.6 % (42.0-52.0); HEMOGLOBIN 14.2 gm/dL (14.0-18.0); LYMPHOCYTES 20.6 %; MCHC 34.1 g/dL (28.0-37.0); MCV 90.8 fL (80.0-100.0); MONOCYTES 7.5 %; MPV 7.2 fl. (7.2-11.1); NUCLEATED RBCS 0 /100WBC; PLATELET COUNT* 263 thou/uL (150-400); POLYS 69.4 %; RBC 4.58 mil/uL (4.50-6.00); RDW-CV 14.4 % (10.5-14.5)
[2020-12-01 18:31] LABS: CALCIUM 8.5 mg/dL (8.5-10.1); CREATININE 0.9 mg/dL (0.6-1.3)
[2020-12-01 18:42] LABS: ALBUMIN 3.5 g/dL (3.4-5.0); MAGNESIUM 2.1 mg/dL (1.8-2.4); TOTAL BILIRUBIN 0.4 mg/dL (<0.1-1.0); TOTAL PROTEIN 6.8 g/dL (6.4-8.2)
[2020-12-01 20:15] VITALS: BP 103/82
[2020-12-01] MEDS ORDERED: DRIZALMA SPRINK20 MG PO (20:44)
[2020-12-02] VITALS (7 sets, daily range): BP systolic 107–120; BP diastolic 74–84
--- NOTE | 2020-12-02 09:53 | EKG ---
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 : 1950 Requested By: Don Chandler Order Number: [id number] MD: Manoj Hernandez Measurements Intervals [place] Rate: 75 P: 39 MT: 158 QRS: -32 QRSD: 109 T: 56 QT: 399 QTc: 446 Interpretive Statements Sinus rhythm Left axis deviation Compared to ECG 09/18/2019 14:32:35 No significant changes Electronically Signed On 12-02-2020 9:53:51 CDT by Manoj Heranndez [email or web address] <ELECTRONICALLY SIGNED> By: Manoj Hernandez MD, [facility] 12/02/20 0953 1806 1806 Manoj Hernandez MD, [facility] /EPI
--- NOTE | 2020-12-02 15:53 | EKG ---
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 : 1950 Requested By: Susan Palomino Order Number: [id number] Reading MD: Manoj Hernandez Measurements Intervals [place] Rate: 84 P: 26 TX: 156 QRS: -45 QRSD: 101 T: 43 QT: 377 QTc: 446 Interpretive Statements Sinus rhythm LAD, consider left anterior fascicular block Borderline T wave abnormalities Compared to ECG 12/01/2020 18:06 no change Electronically Signed On 12-02-2020 15:53:20 CDT by Manoj Hernandez [email or web address] <ELECTRONICALLY SIGNED> By: Manoj Hernandez MD, [facility] 12/02/20 1553 1223 1223 Manoj Hernandez MD, [facility] /EPI
--- NOTE | 2020-12-02 18:10 | NUR ---
PATIENT DISCHARGED AT THIS TIME. IV DC'D, SITE COVERED WITH COTTON AND BANDAID,. PATIENT TOLERATED WITHOUT DIFFICULTIES. VITAL SIGNS WNL. NO C/O PAIN/DISCOMFORT. DISCHARGE INSTRUCTIONS REVIEWED AT THIS TIME WIHT PATIENT AND , ACKNOWLEDGED UNDERSTANDING. HOME MEDICATIONS SENT HOME WITH PATIENT. NO QUESTIONA OR CONCERNS VOICED.
== END 2020-12-02 18:13 | disposition home or self-care (01) ==
LOC: M.ERS 18:03 → M.TBA-ER 18:55 → M.2W 18:55
PROVIDERS: Emergency Medicine Emergency Medical Services; ADMIT Internal Medicine; ATTEND Internal Medicine
DX: R07.89 Other chest pain (principal); R13.10 Dysphagia, unspecified; S06.380A Contusion, laceration, and hemorrhage of brainstem without loss of consciousness, initial encounter; K21.9 Gastro-esophageal reflux disease without esophagitis; I10 Essential (primary) hypertension; J44.9 Chronic obstructive pulmonary disease, unspecified; R26.9 Unspecified abnormalities of gait and mobility; G20 Parkinson's disease; Z79.899 Other long term (current) drug therapy; X58.XXXA Exposure to other specified factors, initial encounter; Y93.89 Activity, other specified; Y92.89 Other specified places as the place of occurrence of the external cause; Y99.8 Other external cause status

== ENCOUNTER 2021-06-20 22:49 | Observation (INO) | payer OTHER, MEDICAID ==
[~2021-06-20] VITALS: Ht 177.8 cm; Wt 76.7 kg
[~2021-06-20 22:49] MED LIST changes: +BACLOFEN 10MG T10 MG PO; +DRIZALMA SPRINK20 MG PO; +DULOXETINE HCL30 MG PO; +FAMOTIDINE 40 M40 M1 PO; +TOPAMAX100 MG PO
[2021-06-20 22:50] VITALS: BP 123/76
[2021-06-20 23:25] LABS: ABSOLUTE BASOPHILS 0.1 thou/uL (0.0-0.2); ABSOLUTE EOSINOPHILS 0.2 thou/uL (0.0-0.7); ABSOLUTE LYMPHOCYTES 1.3 thou/uL (0.8-5.3); ABSOLUTE MONOCYTES 0.4 thou/uL (0.0-1.2); ABSOLUTE NEUTROPHILS 3.2 thou/uL (1.6-8.1); EOSINOPHILS 3.5 %; HEMATOCRIT 44.2 % (42.0-52.0); HEMOGLOBIN 14.4 gm/dL (14.0-18.0); LYMPHOCYTES 25.9 %; MCH 30.8 pg (26.0-34.0); MCHC 32.5 g/dL (28.0-37.0); MCV 94.5 fL (80.0-100.0); MONOCYTES 8.5 %; MPV 7.3 fl. (7.2-11.1); NUCLEATED RBCS 0 /100WBC; PLATELET COUNT* 250 thou/uL (150-400); POLYS 61.1 %; RBC 4.68 mil/uL (4.50-6.00); RDW-CV 14.4 % (10.5-14.5); WBC 5.2 thou/uL (4.0-11.0)
[2021-06-20 23:45] LABS: CALCIUM 9.1 mg/dL (8.5-10.1); CREATININE 0.9 mg/dL (0.6-1.3); POTASSIUM 3.8 mmol/L (3.5-5.1)
[2021-06-20 23:58] LABS: ALBUMIN 3.6 g/dL (3.4-5.0); MAGNESIUM 2.4 mg/dL (1.8-2.4); TOTAL BILIRUBIN 0.2 mg/dL (<0.1-1.0)
[2021-06-21 00:35] LABS: INFLUENZA A ANTIGEN Negative (Negative); INFLUENZA B ANTIGEN Negative (Negative)
[2021-06-21 01:03] LABS: URINE BILIRUBIN NEGATIVE (Negative); URINE BLOOD NEGATIVE (Negative); URINE CLARITY CLEAR; URINE COLOR YELLOW; URINE GLUCOSE-RANDOM NEGATIVE (Negative); URINE KETONES NEGATIVE (Negative); URINE LEUKOCYTES-REFLEX NEGATIVE (Negative); URINE NITRITE-REFLEX NEGATIVE (Negative); URINE PROTEIN NEGATIVE (Negative); URINE SPECIFIC GRAVITY <= 1.005 (1.005-1.030); URINE UROBILINOGEN 0.2 E.U./dl (0.2-1.0)
[2021-06-21 07:00] VITALS: BP 123/86
--- NOTE | 2021-06-21 10:24 | EKG ---
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[place] : 1950 Requested By: Enedina Yuan Order Number: [id number] MD: Manoj Hernandez Measurements Intervals [place] Rate: 59 P: 67 NC: 138 QRS: -29 QRSD: 111 T: 58 QT: 450 QTc: 446 Interpretive Statements Sinus rhythm Borderline left axis deviation Baseline wander in lead(s) V3 Compared to ECG 12/02/2020 12:23:17 rate has slowed Electronically Signed On 06-21-2021 10:24:28 [employer]WAY [employer] by Manoj Hernandez [email or web address] <ELECTRONICALLY SIGNED> By: Manoj Hernandez MD, [facility] 06/21/21 1024 2249 2249 Manoj Hernandez MD, [facility] /EPI
[2021-06-21 11:00] VITALS: BP 133/79
--- NOTE | 2021-06-21 11:53 | NUR ---
GAVE FILI CHILEL UP DATE ON PT'S CONDITION.
--- NOTE | 2021-06-21 12:55 | NUR ---
PER SPEECH THERAPY PT NEEDS TO REMAIN NPO AND HE WILL HAVE A VIDEO SWALLOW THIS AFTERNOON.
--- NOTE | 2021-06-21 14:49 | NUR ---
CM ASSESSMENT ASSESSMENT COMPLETED VIA PHONE WITH (JAQUELINE CROWLEY - [phone]). PT RESIDES IN HOME WITH WHO IS PT'S SOLE CAREGIVER. THE HOME HAS STEPS TO THE FRONT DOOR, BUT PER , BT DOES NOT GO OUTSIDE. PT USES A WALKER, WC, AND TRILOGY. PT'S COMPLETES ADLS. PT'S REPORTS PT PREVIOUSLY WENT TO SNF IN [place] (2 YEARS ADO), BUT THAT PT MADE NO PROGRESS. FOLLOWING SKILLED, PT HAD HH WHICH PT'S STATED WAS NOT HELPFUL. PT'S INDICATED THAT SHE IS NOT INTERESTED IN LTC, SKILLED, OR HH FOR PT. SHE FURTHER REPORTED SHE CANNOT AFFORD PRIVATE DUTY. PT'S STATED HER GOAL IS TO HAVE PT RETURN HOME WHEN MED CLEAR. PT NOT MED CLEAR. PT MAY HAVE HAD A STOKE AND PENDING NEUROLOGY EVAL. CM TO FOLLOW.
[2021-06-21 15:00] VITALS: BP 119/90
--- NOTE | 2021-06-21 16:32 | 2DMMODE ---
[place] [address] 2 D/M-MODE ECHOCARDIOGRAM Name: CHERELLE CROWLEY Room: [address] M.R.#: [id number] Admission: 06/21/21 Attend Phys: Rip Elam, Discharge: Date of : 52 Date of Service: 06/21/21 1631 Report #: [id number] THIS REPORT FOR: cc: Trev Pereira,Trev Ribera,Manoj Shell MD [facility] ~ APPROVED REPORT Study performed: 06/21/2021 14:41:21 EXAM: Comprehensive 2D, Doppler, and color-flow Echocardiogram Patient Location: In-Patient Room #: er Status: routine BSA: 1.92 HR: 71 bpm BP: 133/79 mmHg Rhythm: NSR Other Information Study Quality: Adequate Technically limited study due to off axsi parasternal imaging. Indications CVA/TIA Echo Enhancing Agent Indication: Rule out Shunt Agent(s) / Amount(s) Used: Agitated Saline 10 cc 2D Dimensions LVOT Diam: 20.55 (18-24mm) Ascending Ao: 36.15 (22-36mm) Aortic Root: 38.46 mm Volumes Left Atrial Volume (Systole) LA ESV Index: 16.40 mL/m2 Aortic Valve AoV Peak Keivn.: 0.79 m/s AO Peak Gr.: 2.50 mmHg LVOT Max P.64 mmHg AO Mean Gr.: 1.15 mmHg LVOT Mean P.14 [place] [address] 2 D/M-MODE ECHOCARDIOGRAM Name: CHERELLE CROWLEY [address] [id number] Admission: 06/21/21 Attend Phys: Rip Elam, Discharge: Date of : 52 Date of Service: 06/21/21 1631 Report #: [id number] LVOT Max V: 0.81 m/s AO V2 VTI: 12.24 cm LVOT Mean V: 0.49 m/s ETHAN (VTI): 4.74 cm2 LVOT V1 VTI: 17.51 cm Mitral Valve E/A Ratio: 0.77 MV Decel. Time: 325.14 ms MV E Max Kevin.: 0.47 m/s MV PHT: 94.29 ms MVA (PHT): 2.33 cm2 TDI E/Lateral E': 4.27 E/Medial E': 5.22 Medial E' Kevin.: 0.09 m/s Lateral E' Kevin.: 0.11 m/s Pulmonary Valve PV Peak Kevin.: 0.75 m/s PV Peak Gr.: 2.22 mmHg Left Ventricle The left ventricle is normal size. There is normal LV segmental wall motion. There is normal left ventricular wall thickness. Left ventricular systolic function is normal. The left ventricular ejection fraction is within the normal range. LVEF is 60-65%. Grade I - abnormal relaxation pattern. Right Ventricle The right ventricle is normal size. The right ventricular systolic function is normal. Atria The left atrium size is normal. The interatrial septum is intact with no evidence for an atrial septal defect. The right atrium size is normal. Aortic Valve The aortic valve is normal in structure. No aortic regurgitation is present. There is no aortic valvular stenosis. Mitral Valve The mitral valve is normal in structure. There is no mitral valve regurgitation noted. No evidence of mitral valve stenosis. Tricuspid Valve The tricuspid valve is normal in structure. Unable to assess PA pressure. Trace tricuspid [place] [address] 2 D/M-MODE ECHOCARDIOGRAM Name: CHERELLE CROWLEY Room: [address] MBrianne#: [id number] Admission: 06/21/21 Attend Phys: Rip Elam, Discharge: Date of : 52 Date of Service: 06/21/21 1631 Report #: [id number] Pulmonic Valve Pulmonic valve is not well visualized. There is no pulmonic valvular regurgitation. Great Vessels The aortic root is normal in size. IVC is not well visualized. Pericardium There is no pericardial effusion. <Conclusion> LVEF is 60-65%. The interatrial septum is intact with no evidence for an atrial septal defect. <ELECTRONICALLY SIGNED> By: Manoj Hernandez MD, FACC 06/21/21 163 30 30 Manoj Hernandez MD, FACC /INF
[2021-06-21 19:00] VITALS: BP 119/61
[2021-06-22] VITALS (11 sets, daily range): BP systolic 110–134; BP diastolic 72–89
[2021-06-22 04:58] LABS: ALKALINE PHOSPHATASE 95 U/L (46-116); ANION GAP 10 mmol/L (7-16); BUN 11 mg/dL (7-18); CALCIUM 8.4 mg/dL (8.5-10.1); CHLORIDE 109 mmol/L (98-107); CHOLESTEROL 152 mg/dL (<200); CO2 22 mmol/L (21-32); CREATININE 0.9 mg/dL (0.6-1.3); GLUCOSE 87 mg/dL (70-99); HDL CHOLESTEROL 42 mg/dL (>40); LDL CHOLESTEROL 94 mg/dL (<100); POTASSIUM 3.5 mmol/L (3.5-5.1); SGOT < 5 U/L (15-37); SGPT 8 U/L (30-65); SODIUM 141 mmol/L (136-145); TC:HDL 3.6 Ratio (Not establshd); TOTAL BILIRUBIN 0.4 mg/dL (<0.1-1.0); TRIGLYCERIDE 83 mg/dL (<150); VLDL 17 mg/dL (<40)
[2021-06-22 05:12] LABS: SERUM ASSESSMENT CLEAR
--- NOTE | 2021-06-22 10:02 | NUR ---
TRANSFERRED PT FROM ER TO [facility] HOLDING UNTIL ROOM AVAILABLE. ADMISSION HISTORY AND ASSESSMENT COMPLETED. PT WITH DYSARTHRIA. SPEECH DIFFICULT TO UNDERSTAND. ANSWERS YES/NO QUESTIONS EASILY. ABLE TO UNDERSTAND MOST RESPONSES. SLEEPY UNLESS STIMULATED. REPORTS HEAD FEELS LIKE "BOOM". REPORTS HAVING CHRONIC HEADACHE. TELE MONITOR ON.
--- NOTE | 2021-06-22 10:22 | NUR ---
TO MRI VIA CART
--- NOTE | 2021-06-22 11:32 | NUR ---
Returned from MRI. Took oral medications in smashed banana. Declined breakfast despite encouragement.
--- NOTE | 2021-06-22 12:54 | NUR ---
Spoke with daughter Kirstin via phone. Discussed pt status. Daughter hesistant for discharge to occur today d/t weakness and poor appetite. to come visit and discuss plan additionally. Discussed with Aishwarya in CM.
--- NOTE | 2021-06-22 16:33 | NUR ---
CM FOLLOWUP PT MED CLEAR FOR DC HOME WITH HH. HH DISCUSSED WITH FAMILY AND [facility][phone][facility] PT ACCEPTED BY [facility]. PT TO BE TRANSPORTED HOME BY DAUGHTER (RANJANA RCOWLEY [phone]) AROUND 4PM.
--- NOTE | 2021-06-22 17:04 | NUR ---
VOIDS PER URINAL. ATE 1/2 OF LUNCH TRAY AND DRANK THICKENED LIQUIDS. COMPLETE BED BATH GIVEN. CLEAN CLOTHING ON WITH TOTAL ASSIST OF ONE RN. UP TO W/C, BEARS WEIGHT, BUT UNABLE TO MOVE FROM BED TO W/C WITHOUT MAXIMUM ASSIST OF ONE. DISCHARGE INSTRUCTIONS DISCUSSED WITH DAUGHTER. DISMISSED HOME PER FAMILY VEHICLE.
[2021-06-23 04:06] LABS: GLYCOHEMOGLOBIN (HGB A1C) 5.6 % (4.8-5.6)
== END 2021-06-22 17:00 | disposition home or self-care (01) ==
LOC: M.ERS 22:49 → M.TBA-ER 06-21 02:59 → M.TBA 06-22 11:28
PROVIDERS: Emergency Medicine; Internal Medicine; ADMIT Internal Medicine; ATTEND Internal Medicine
DX: R47.1 Dysarthria and anarthria (principal); R13.10 Dysphagia, unspecified; Z20.822 Contact with and (suspected) exposure to COVID-19; J44.9 Chronic obstructive pulmonary disease, unspecified; I10 Essential (primary) hypertension; K21.9 Gastro-esophageal reflux disease without esophagitis; J96.21 Acute and chronic respiratory failure with hypoxia; Z79.899 Other long term (current) drug therapy